=== PATIENT | female | born 1975 | race Caucasian/White ===

== ENCOUNTER 2018-11-08 08:37 | Day surgery (SDC) | payer OTHER, SELFPAY ==
[2018-11-08] MEDS: SODIUM CHLORIDE 0.9% 1,000 ML 200 ML IV (08:57)
[2018-11-08 08:58] VITALS: BP 123/83; PULSE 80; RESP 12; TEMP 36.2; O2SAT 99; BMI 24.0
--- NOTE | 2018-11-08 09:15 | PM.HP.1 ---
History of Present Illness Date Patient Seen: 11/08/18 Time Patient Seen: 09:15 Chief complaint: [id number] Narrative: 43yo F referred for high risk screening colonoscopy due to father and grandfather having CRC in 60s and 90s, respectively. No symptoms in patient, no other family cancer histories she knows of except a grandmother but unknown type. No known genetic testing done. Patient History Medical History Eczema (Acute) Surgical History H/O oral surgery (Acute) Family History Father Cancer Grandfather Cancer Social History household members: spouse Family & Social History Family History Father Cancer Grandfather Cancer Social History: household members spouse Meds Home Medications Medication Instructions Recorded Confirmed Type No Known Home Medications 09/27/18 11/08/18 History Allergies Allergy/AdvReac Type Severity Reaction Status Date / Time INGREDIENT: NDA - NO KNOWN Allergy Unknown Uncoded 11/08/18 08:48 DRUG ALLERGIES Review of Systems Constitutional Constitutional: Reports as per HPI Exam Vital Signs (past 8 hours): - 11/08/18 08:58 Temperature 97.2 F L Pulse Rate 80 Respiratory Rate 12 Blood Pressure 123/83 Pulse Oximetry 99 Oxygen Delivery Method Room Air Narrative Exam Narrative: AAO, NAD EOMI, MMM, no scleral icterus unlabored RA soft, nt/nd MAEW visible skin dry and intact Assessment & Plan (1) Family history of colon cancer: Current visit: Yes Status: Acute Assessment & Plan narrative: - plan for high risk screening colonoscopy --> all R/B/A discussed and pt wishes to proceed
[2018-11-08] MEDS: MIDAZOLAM 5 MG/5 ML VIAL IV (09:39)
[2018-11-08] MEDS: fentaNYL 250 MCG/5 ML INJ IV (09:40)
--- NOTE | 2018-11-08 09:43 | PM.OP.ENDO ---
Operative Date/Time/Diagnoses Date of procedure: 11/08/18 Time of procedure: 09:43 Pre-op diagnosis: Family history of colon cancer Post-op diagnosis: same Procedure & Clinicians Study performed: High risk screening colonoscopy Same procedure as scheduled: Yes Indications: 43yo F with strong family history of colon cancer. No symptoms. Surgeon: Haylee Baldwin Procedure Notes SCOAP/Timeout: 921 Procedure in detail: After obtaining informed consent, the patient was brought to the GI suite and placed in the left lateral decubitus position on the examination table. After placement of appropriate monitors, the patient was given incremental doses of Versed and Fentanyl until an appropriate level of sedation was achieved. A time out was held per SCOAP protocol. A digital rectal examination was performed and did not reveal any masses or obstructing lesions. The colonoscope was gently passed into the patient's anus and the entire colon navigated to the level of the cecum with minimal difficulty. Prep was adequate. Once in the cecum, the scope was slowly withdrawn being sure to go before and beyond all mucosal folds and prominences as able to get a thorough examination. No masses or polyps are noted. Other findings include diminutive internal hemorrhoidal tissue. At the level of the rectal vault, the scope was retroflexed and the internal anal canal was examined. The scope was straightened and air aspirated from the colon. The instrument was removed from the patient's body and the procedure was concluded. The patient was allowed to awaken from sedation without difficulty and taken to the post-anesthesia care unit in good condition. Scope withdrawal time: 11 min Sedation minutes: 19 Findings: internal hemorrhoids (diminutive) Specimen(s): none sent Complications: none Impression: 1. healthy colon 2. diminutive internal hemorrhoidal tissue Recommendations: Colonscopy in 5 years (due to family history ) Follow up: as needed Disposition: PACU
[2018-11-08 09:46] VITALS: BP 112/64; PULSE 76; RESP 13; TEMP 36.2; O2SAT 98
[2018-11-08 09:51] VITALS: BP 119/67; PULSE 97; RESP 18; O2SAT 98
[2018-11-08 09:56] VITALS: BP 125/84; PULSE 91; RESP 12; TEMP 36.4; O2SAT 99
[2018-11-08 10:04] VITALS: BP 125/86; PULSE 77; RESP 15; TEMP 36.3; O2SAT 100
[2018-11-08 10:25] VITALS: BP 122/85; PULSE 70; RESP 15; TEMP 36.3; O2SAT 100
== END 2018-11-08 10:45 | disposition home or self-care (01) ==
PROVIDERS: PCP Physician Assistant Medical; Visit Provider Surgery
PROC: 0DJD8ZZ Inspection of Lower Intestinal Tract, Via Natural or Artificial Opening Endoscopic (ICD-10-PCS; CPT 45378; principal; 2018-11-08 09:45)
DX: Z12.11 Encounter for screening for malignant neoplasm of colon (principal); K64.8 Other hemorrhoids; Z80.0 Family history of malignant neoplasm of digestive organs
CPT/HCPCS: G0105; 99152; J2250; J3010

== ENCOUNTER 2024-01-22 11:55 | Day surgery (SDC) | payer OTHER, SELFPAY ==
[2024-01-22 12:45] VITALS: BP 127/77; PULSE 96; RESP 12; TEMP 37; O2SAT 99
[2024-01-22] MEDS: LACTATED RINGERS 1,000 ML 42 ML IV (13:00)
--- NOTE | 2024-01-22 13:32 | P.HP_ITS ---
History of Present Illness History of Present Illness Date Patient Seen: 01/22/24 Time Patient Seen: 13:32 Chief complaint: Colonoscopy Narrative: 48-year-old woman here for screening colonoscopy. Her father has a history of colon cancer. Previous colonoscopy at age 45 normal. No abdominal concerns today. PFSH Medical History Eczema Surgical History H/O oral surgery Family History Father Cancer Grandfather Cancer Social History household members: spouse Smoking Status: Never smoker alcohol intake: current Meds Home Medications and Allergies Home Medications Medication Instructions Recorded Confirmed Type sodium,potassium,mag sulfates 17.5 See Rx Instructions PO .COMPLEX 12/23/23 Rx gram-3.13 gram-1.6 gram oral soln #354 mL (Suprep Bowel Prep Kit) Allergies Allergy/AdvReac Type Severity Reaction Status Date / Time No Known Drug Allergies Allergy Verified 01/22/24 12:40 Exam Vital Signs (past 8 hours): - 01/22/24 12:45 Temperature 98.6 F Pulse Rate 96 H Respiratory Rate 12 Blood Pressure 127/77 Pulse Oximetry 99 Oxygen Delivery Method Room Air Oxygen Delivery Method Room Air Narrative Exam Narrative: General adult woman alert oriented no acute distress Chest nonlabored respiration Extremities warm well perfused Assessment & Plan Assessment & Plan narrative: The patient requires colorectal screening and colonoscopy is recommended. Tech nical details were discussed. Risks, benefits, alternatives explained. Risks including but not limited to myocardial infarction, aspiration, bleeding, pain, missed lesion, incomplete examination, need for further radiographic studies, intestinal injury, and need for major abdominal surgery were discussed. All questions were answered to their satisfaction, and they are in agreement with this plan. Time-Based Coding :: [TOTAL MINUTES] spent with patient and on the chart (including review of chart, obtaining history, exam, reviewing outside data, placing orders, documenting exam and treatment plan, and counseling patient) on [DATE].
--- NOTE | 2024-01-22 13:36 | P.OP.COLON_ITS ---
Operative Date/Time/Diagnoses Date of procedure: 01/22/24 Time of procedure: 13:36 Pre-op diagnosis: Family history of colon cancer Procedure & Clinicians Study performed: Screening colonoscopy Same procedure as scheduled: Yes Indications: Father history of colon cancer Colorectal screening Surgeon: Jesse Foy Procedure Notes Procedure in detail: The history and physical was performed/updated and the patient is ASA class is 1. The procedure was discussed in detail with the patient. Potential risks complications including infection, bleeding, missed diagnosis, perforation, need for surgery, and were explained. Their questions were answered and inform ed consent was obtained. Patient was brought to the procedure room and placed standard monitoring equipment. The patient's vital signs were monitored continuously throughout the entire procedure. Prior to starting time-out was performed. The patient was placed in the left lateral recumbent position. Procedural sedation was administered by anesthesia. Examination began with a thorough inspection of the perianal area there was no evidence of fissures, fistulae, external hemorrhoids or cutaneous malignancy. The colonoscopy scope was then placed into the anal canal and was advanced to the cecum, which was identified by the ileocecal valve, the appendiceal orifice and the confluence of the taenia. The scope was then slowly withdrawn examining colon thoroughly in all directions, irrigating it of any residual stool. The scope was retroflexed within the rectum The patient tolerated the procedure well. They will be discharged once criteria are met. The prep was of good/excellent quality. The withdrawl time was 6 minutes. FINDINGS * Unremarkable colonoscopy. Normal healthy colonic mucosa without mass or polyps. Specimen(s): none sent Impression: Normal colonoscopy Post-procedure Recommendations: Colonoscopy in 5 years (For family history) Disposition: same day surgery
[2024-01-22 13:53] VITALS: BP 106/58; PULSE 95; RESP 17; TEMP 36.4; O2SAT 97
[2024-01-22 13:58] VITALS: BP 110/71; PULSE 91; RESP 17; O2SAT 98
[2024-01-22 14:02] VITALS: BP 122/82; PULSE 94; RESP 16; O2SAT 100
[2024-01-22 14:12] VITALS: BP 120/79; PULSE 88; RESP 14; TEMP 36.3; O2SAT 96
== END 2024-01-22 14:15 | disposition home or self-care (01) ==
PROVIDERS: PCP Physician Assistant Medical; Referring Provider Surgery; Visit Provider Surgery
PROC: 0DJD8ZZ Inspection of Lower Intestinal Tract, Via Natural or Artificial Opening Endoscopic (ICD-10-PCS; CPT 45378; principal; 2024-01-22 13:30)
DX: Z12.11 Encounter for screening for malignant neoplasm of colon (principal); Z80.0 Family history of malignant neoplasm of digestive organs
CPT/HCPCS: 45378; J2704